=== PATIENT | male | born 1970 | race Hispanic/Latino ===

== ENCOUNTER → 2017-10-11 | Outpatient (CLI) | payer BC ==
[~2017-10-11] MED LIST: IOPAMIDOL 370 MG/ML 200 ML INFUS..BTL INJ ONE; SODIUM CHLORIDE 0.9% 250ML 250 ML ONE; SODIUM CHLORIDE 0.9% 50ML 50 ML ONE
--- NOTE | 2017-10-11 12:51 | Diagnostic Imaging Report ---
PROCEDURE: CT ABDOMEN \T\ PELVIS W/WO CONTRAST COMPARISON:None. INDICATIONS:Hematuria. TECHNIQUE: Urogram protocol Volumetric CT abdomen and pelvis after ministration of 100 mL Isovue-370 intravenous contrast. Precontrast images obtained. Multiplanar reformatted images. Volume rendered images of the collecting system. DLP: 1688.52 FINDINGS: Clear lung bases. No pleural effusions. Normal heart size. Liver: Normal Gallbladder: Normal Pancreas: Normal Spleen: Normal Adrenal glands: Normal Urinary bladder: Normal Prostate and seminal vesicles: Normal Kidneys and ureters: Right: Normal. No stones. Normal collecting system with near-complete opacification of the right ureter. Left: Normal. No stones. Normal collecting system with complete opacification of the left ureter. Bowel: Normal caliber. Sigmoid diverticulosis. Normal appendix. Peritoneum: Normal Vasculature: Normal caliber. Lymph nodes: Normal Skeleton: Mild T10 and T11 degenerative disc disease. Otherwise, normal. Soft tissues: Normal CONCLUSION: Normal CT urogram. No conspicuous etiology for hematuria. Dictated by: Juaquin Haque M.D. on 10/11/2017 at 13:00 Electronically approved by: Juaquin Haque M.D. on 10/11/2017 at 13:00
== END ==
LOC: CT 11:28
PROVIDERS: ATTEND Urology
DX: R31.9 Hematuria, unspecified (principal)
CPT/HCPCS: 74178; J7050; Q9967

== ENCOUNTER → 2018-01-31 | Outpatient (CLI) | payer BC ==
[~2018-01-31] MED LIST changes: +DIATRIZOATE MEGL/DIATRIZOA SOD 30 ML BTL PO ONE; -SODIUM CHLORIDE 0.9% 250ML 250 ML ONE
--- NOTE | 2018-01-31 15:43 | Diagnostic Imaging Report ---
PROCEDURE: CT ABDOMEN AND PELVIS WITH CONTRAST TECHNIQUE: The abdomen and pelvis were scanned utilizing a multidetector helical scanner from the diaphragm to the lesser trochanter after the IV administration of 100 cc of Isovue 370 and the oral administration of Gastroview water. Coronal and sagittal multiplanar reformations were obtained. COMPARISON: CT abdomen and pelvis 10/11/2017. INDICATIONS: LEFT LOWER QUADRANT PAIN FINDINGS: LOWER THORAX: Normal. HEPATOBILIARY: No focal hepatic lesions. No biliary ductal dilatation. SPLEEN: No splenomegaly. PANCREAS: No focal masses or ductal dilatation. ADRENALS: No adrenal nodules. KIDNEYS/URETERS: No hydronephrosis, stones, or solid mass lesions. PELVIC ORGANS/BLADDER: Unremarkable. PERITONEUM / RETROPERITONEUM: No free air or fluid. LYMPH NODES: No lymphadenopathy. VESSELS: Unremarkable. GI TRACT: No distention or wall thickening. Normal appendix. Circumferential bowel wall thickening is present in the distal descending and sigmoid colon series 2 image 61. Moderate amount of retained feces limits intraluminal evaluation of the colon. BONES AND SOFT TISSUES: Unremarkable. IMPRESSION: Circumferential bowel wall thickening of the distal descending and sigmoid colon may represent a colitis of infectious or inflammatory etiology. No evidence of obstruction, perforation, or abscess formation. Dictated by: Randal De Los Santos M.D. on 01/31/2018 at 15:44 Electronically approved by: Randal De Los Santos M.D. on 01/31/2018 at 15:44
== END ==
LOC: CT 10:01
PROVIDERS: ATTEND Internal Medicine Gastroenterology
DX: R10.9 Unspecified abdominal pain (principal)
CPT/HCPCS: 74177; Q9967